=== PATIENT | female | born 1990 | race Two or more races ===

== ENCOUNTER 2021-10-31 18:03 | Emergency (ER) | payer OTHER ==
[~2021-10-31] VITALS: Ht 167.6 cm; Wt 85.7 kg
[2021-10-31 20:27] LABS: Urine Bacteria FEW /hpf (None Seen); Urine Blood 2+ /uL (Negative); Urine Mucus FEW (None Seen); Urine Specific Gravity 1.013 (1.001-1.035); Urine WBC 2 /hpf (0 - 5)
[2021-10-31 20:54] LABS: Basophils # (auto) 0.1 10 ^3/uL (0-0.2); Basophils % (auto) 0.8 % (0.0-2.0); Eosinophils # (auto) 0.1 10 ^3/uL (0-0.8); Eosinophils % (auto) 0.7 % (0.0-7.0); Hematocrit 37.4 % (36.0-46.0); Hemoglobin 12.8 g/dL (12.2-16.2); Lymphocytes # (auto) 2.8 10 ^3/uL (0.4-5.4); Lymphocytes % (auto) 26.1 % (10.0-50.0); Mean Corpuscular Hemoglobin 28.8 pg (28.0-32.0); Mean Corpuscular Hgb Conc. 34.3 g/dL (32.0-36.0); Mean Corpuscular Volume 84.1 fL (80.0-100.0); Monocytes # (auto) 0.4 10 ^3/uL (0-1.3); Monocytes % (auto) 3.4 % (0.0-12.0); Neutrophils # (auto) 7.4 10 ^3/uL (1.6-8.6); Nucleated Red Blood Cells % 0.1 %; Red Blood Cells 4.44 10^6/uL (4.0-5.20); Red Cell Distribution Width 14.1 % (11.8-14.3); White Blood Cell 10.8 10^3/uL (4.4-10.8)
[2021-10-31] MEDS ORDERED: KETOROLAC TROMETH 30 MG/ML 1ML VIAL IV ONE (21:00)
[2021-10-31 21:04] LABS: BUN/Creatinine Ratio 15.9; Calcium 9.3 mg/dL (8.5-10.1); Potassium 3.8 mmol/L (3.5-5.1)
[2021-10-31 21:06] LABS: Albumin 3.9 g/dL (3.4-5.0); Bilirubin, Total 0.1 mg/dL (0.2-1.0); Total Protein 7.8 g/dL (6.4-8.2)
[2021-10-31 23:41] VITALS: BP 126/92
== END 2021-10-31 23:45 | disposition home or self-care (01) ==
LOC: ER 18:05
DX: R10.9 Unspecified abdominal pain (principal)
CPT/HCPCS: 36415; 76830; 76856; 80053; 81001; 81025; 84702; 85025; 86850; 86900; 86901; 96374; 99284; J1885

== ENCOUNTER → 2021-12-14 | Emergency (ER) | payer OTHER, MEDICAID ==
[~2021-12-14] VITALS: Ht 167.6 cm; Wt 83.9 kg
[2021-12-14 10:57] VITALS: BP 128/82
== END | disposition home or self-care (01) ==
LOC: ER 10:40
DX: S60.222A Contusion of left hand, initial encounter (principal); R51.9 Headache, unspecified; W01.0XXA Fall on same level from slipping, tripping and stumbling without subsequent striking against object, initial encounter; Y93.89 Activity, other specified; Y92.89 Other specified places as the place of occurrence of the external cause; Y99.8 Other external cause status
CPT/HCPCS: 70450; 73130